=== PATIENT | female | born 1955 | race African-American/Black ===

== ENCOUNTER 2016-08-04 10:37 | Day surgery (SDC) | payer MEDICARE, OTHER ==
[~2016-08-04] VITALS: Ht 165.1 cm; Wt 111.6 kg
[~2016-08-04 10:37] MED LIST: ALBU8.5H3 IH; HYDR25TA6 PO; NAPR-688 PO; PARO10TA76 PO
[2016-08-04] MEDS ORDERED: AMLO-147 PO (11:32)
[2016-08-04] MEDS ORDERED: ESOM40CA PO (11:32)
[2016-08-04] MEDS ORDERED: LORA10TA3 PO (11:32)
[2016-08-04 11:34] VITALS: Ht 165.1 cm; Wt 111.6 kg
[2016-08-04 13:35] VITALS: BP 132/73; PULSE 82; RESP 11
[2016-08-04] MEDS ORDERED: PROPOFOL 40 ML ONE (13:39)
[2016-08-04] MEDS ORDERED: LIDOCAINE 2% (SDV) 5 ML INJ ONE (13:39)
--- NOTE | 2016-08-04 14:21 | GILP ---
DATE OF PROCEDURE: 08/04/2016 NAME OF PROCEDURES: Esophagogastroduodenoscopy and biopsy. SURGEON: Radha Boyle MD PREOPERATIVE DIAGNOSIS: Abdominal pain. POSTOPERATIVE DIAGNOSES: 1. Gastritis with erosions. 2. Gastric mucosal biopsies were taken for Helicobacter pylori test. INDICATION FOR THE PROCEDURE: Ms. Ne Drake is a 61-year-old female patient who had upper a bdominal pain, not responding to therapy. The patient was scheduled for endoscopic examination for further evaluation. The procedure and possible complications are well explained to the patient, she understood and conse nted to the procedure. DESCRIPTION OF PROCEDURE: Under the influence of anesthesia, the gastroscope was carefully introduc ed into the esophagus and under direct vision, it was advanced to the stomach and through the pyloru s into the duodenal bulb and descending duodenum. FINDINGS: ESOPHAGUS: The mucosa was normal. STOMACH: The patient had gastritis with erosions. Gastric mucosal biopsies were taken for H. pylor i test. DUODENUM: Normal. She tolerated the procedure very well and there was no complication from the procedure. At the end of the procedures, she was awake with stable vital signs and she was discharged home to the care of her family. IMPRESSION: 1. Gastritis with erosions. 2. Gastric mucosal biopsies were taken for Helicobacter pylori test. PLAN 1. Continue Nexium 40 mg p.o. q.a.m. 2. Add Zantac 300 mg p.o. at bedtime. 3. Await H. pylori test report. Dictated By: RADHA KAMARA/RAMÍREZ Conf#: [id number] DID#: [id number] CC: RADHA BOYLE MD;*EndCC*
[2016-08-04 14:24] VITALS: BP 116/74; PULSE 90; RESP 18
== END 2016-08-04 14:57 | disposition home or self-care (01) ==
LOC: GIL 10:37
PROVIDERS: ATTEND Internal Medicine Gastroenterology
DX: K29.60 Other gastritis without bleeding (principal); J45.909 Unspecified asthma, uncomplicated; I10 Essential (primary) hypertension; E66.01 Morbid (severe) obesity due to excess calories; Z68.41 Body mass index [BMI] 40.0-44.9, adult
CPT/HCPCS: 87081